=== PATIENT | female | born 1935 | race Asian ===

== ENCOUNTER 2023-01-30 01:20 | Emergency (ER) | payer OTHER ==
[~2023-01-30] VITALS: Ht 160 cm; Wt 65.8 kg
[2023-01-30 01:23] VITALS: BP 156/54
--- NOTE | 2023-01-30 01:23 | NUR ---
[facility] ALS TO BED #4
[2023-01-30] MEDS ORDERED: MORPHINE SULFATE 2 MG/ML SYR IVP STA (01:36)
[2023-01-30] MEDS ORDERED: ONDANSETRON 4 MG/2 ML VIAL IVP ONE (01:40)
[2023-01-30] MEDS ORDERED: NACL 0.9% 1,000 ML IV ONE (01:40)
[2023-01-30 01:58] LABS: BASOPHILS # (AUTO) 0.1 K/uL (0.00-0.22); BASOPHILS % (AUTO) 0.6 % (0.0-2.0); EOSINOPHILS # (AUTO) 0.1 K/uL (0-0.4); EOSINOPHILS % (AUTO) 0.6 % (0.0-4.0); HEMATOCRIT 37.5 % (36-48); HEMOGLOBIN 12.9 g/dL (12.0-16.0); LYMPHOCYTES # (AUTO) 2.1 K/uL (2.5-16.5); LYMPHOCYTES % (AUTO) 20.7 % (20.5-51.1); MEAN CORPUSCULAR HEMOGLOBIN 31 pg (27-31); MEAN CORPUSCULAR HGB CONC 34 g/dL (33-37); MEAN CORPUSCULAR VOLUME 90.7 fL (80-94); MONOCYTES # (AUTO) 0.4 K/uL (0.8-1.0); MONOCYTES % (AUTO) 4.1 % (1.7-9.3); NEUTROPHILS # (AUTO) 7.6 K/uL (1.8-7.7); PLATELET COUNT (AUTO) 241 K/uL (140-450); RED BLOOD CELL COUNT(AUTO) 4.13 MIL/uL (4.20-5.40); RED CELL DISTRIBUTION WIDTH 13.1 % (11.6-13.7); WHITE BLOOD COUNT (AUTO) 10.3 K/uL (4.8-10.8)
--- NOTE | 2023-01-30 02:00 | NUR ---
son at the bedside.
[2023-01-30 02:14] LABS: ALBUMIN 4.2 g/dL (3.4-5.0); ANION GAP 12.4 (8-16); ASPARTATE AMINOTRANSFERASE 27 U/L (15-37); CARBON DIOXIDE 28.1 mmol/L (21-32); CHLORIDE 102 mmol/L (98-107); CREATININE 0.7 mg/dL (0.6-1.3); GLUCOSE 132 mg/dL (74-106); LIPASE 128 U/L (73-393); POTASSIUM 3.5 mmol/L (3.5-5.1); SODIUM SERUM 139 mmol/L (136-145); TOTAL BILIRUBIN 0.5 mg/dL (0.0-1.0); UREA NITROGEN, BLOOD 16 mg/dL (7-18)
--- NOTE | 2023-01-30 04:30 | NUR ---
po challanged sucessfully done. pt tolerate well
[2023-01-30 05:03] VITALS: BP 113/46
--- NOTE | 2023-01-30 05:15 | NUR ---
Urine sent to the lab.
[2023-01-30 05:22] LABS: APPEARANCE,URINE CLEAR (CLEAR); BILIRUBIN,URINE NEGATIVE (NEGATIVE); BLOOD, URINE NEGATIVE (NEGATIVE); COLOR,URINE YELLOW (YELLOW); LEUKOCYTE ESTERASE ,URINE NEGATIVE (NEGATIVE); NITRITE, URINE NEGATIVE (NEGATIVE); UGLUCOSE NEGATIVE (NEGATIVE)
[2023-01-30] MEDS ORDERED: ONDA-188 SL (05:43)
== END 2023-01-30 06:02 | disposition home or self-care (01) ==
LOC: MED 01:20
DX: R10.84 Generalized abdominal pain (principal); R11.2 Nausea with vomiting, unspecified; R51.9 Headache, unspecified; Z79.899 Other long term (current) drug therapy
CPT/HCPCS: 36415; 70450; 74176; 80053; 81003; 83690; 85025; 96365; 96375; 99285; J2270; J2405; J7030